=== PATIENT | female | born 1980 ===

== ENCOUNTER 2017-07-04 10:03 | Emergency (ER) | payer MEDICAID ==
[2017-07-04 10:06] VITALS: BMI 23.4
[2017-07-04 10:07] VITALS: BP 98/61; PULSE 78; RESP 16; TEMP 98.2; O2SAT 100
--- NOTE | 2017-07-04 11:38 | ED PDOC ---
HPI: Headache Time Seen by Provider: 07/04/17 10:17 Chief Complaint (Nursing): Headache Chief Complaint (Provider): Facial pain History Per: Patient History/Exam Limitations: no limitations Onset/Duration Of Symptoms: Days Current Symptoms Are (Timing): Still Present Preceeding Symptoms: denies: Visual Disturbances, Known Migraine Symptoms Associated Symptoms: denies: Photophobia, Blurred Vision, Nausea, Vomiting, Extremity Weakness Additional Complaint(s): 37 yo female presents with facial pain for 2 days. Pt states she fell down her steps 2 days ago and was seen at [facility] [place]. PT states she had CT completed of head. PT was discharged home. PT reports continues facial and nose pain. PT had laceration of the nose and between nose and mouth. Pt states it was no repaired. Pt comes to day because she was concerned about swelling under eyes. Pt states she thinks it was worse yesterday and today then initial day of fall. PT reports faical pain the same as previous and took tylenol at home. Past Medical History Reviewed: Historical Data, Nursing Documentation, Vital Signs Vital Signs: Last Vital Signs Temp 98.2 F 07/04/17 10:06 Pulse 78 07/04/17 10:06 Resp 16 07/04/17 10:06 BP 98/61 L 07/04/17 10:06 Pulse Ox 100 07/04/17 10:06 - Medical History PMH: No Chronic Diseases - Surgical History Surgical History: No Surg Hx - Family History Family History: States: No Known Family Hx - Living Arrangements Living Arrangements: With Family - Social History Current smoker - smoking cessation education provided: No - Immunization History Hx Tetanus Toxoid Vaccination: No Hx Influenza Vaccination: No Hx Pneumococcal Vaccination: No - Home Medications Home Medications: Ambulatory Orders Medication Instructions Recorded Ibuprofen [Motrin Tab] 800 mg PO Q6H PRN #20 tab 07/04/17 - Allergies Allergies/Adverse Reactions: Allergies Allergy/AdvReac Type Severity Reaction Status Date / Time No Known Allergies Allergy Verified 07/04/17 10:11 Review of Systems ROS Statement: Except As Marked, All Systems Reviewed And Found Negative Constitutional: Negative for: Fever, Chills Eyes: Positive for: Other (Facial swelling ) Physical Exam - Reviewed Nursing Documentation Reviewed: Yes Vital Signs Reviewed: Yes - Physical Exam Appears: Positive for: Well, Non-toxic, No Acute Distress Head Exam: Positive for: ATRAUMATIC, NORMAL INSPECTION, NORMOCEPHALIC Skin: Positive for: Warm. Negative for: Normal Color (Mild bilateral ecchymosis under eyes; (+) laceration on nsal bridge and between nose and upper lip, no sutures ) Eye Exam: Positive for: Normal appearance, EOMI, PERRL, Periorbital swelling ( Bilateral, inferior ) ENT: Positive for: Normal ENT Inspection Neck: Positive for: Normal, Painless ROM Cardiovascular/Chest: Positive for: Regular Rate, Rhythm Respiratory: Positive for: CNT, Normal Breath Sounds Gastrointestinal/Abdominal: Positive for: Normal Exam, Bowel Sounds, Soft Back: Positive for: Normal Inspection Extremity: Positive for: Normal ROM Neurologic/Psych: Positive for: Alert, manufacturing shift supervisor II-XII, Oriented, Mood/Affect, Cerebellar Tests, Gait. Negative for: Motor/Sensory Deficits, Aphasia, Facial Droop - ECG O2 Sat by Pulse Oximetry: 100 Disposition - Clinical Impression Clinical Impression: Facial injury, Head injury - Patient ED Disposition Is Patient to be Admitted: No Counseled Patient/Family Regarding: Diagnosis, Need For Followup, Rx Given - Disposition Disposition: Routine/Home Disposition Time: 11:34 Condition: GOOD Prescriptions: Ibuprofen [Motrin Tab] 800 mg PO Q6H PRN #20 tab PRN Reason: Pain Instructions: Concussion, Adult (DC)
== END 2017-07-04 11:49 | disposition home or self-care (01) ==
LOC: H.ER 10:03
DX: S09.90XA Unspecified injury of head, initial encounter (principal); S09.93XA Unspecified injury of face, initial encounter; W10.9XXA Fall (on) (from) unspecified stairs and steps, initial encounter; Y92.89 Other specified places as the place of occurrence of the external cause